=== PATIENT | male | born 1980 | race Caucasian/White ===

== ENCOUNTER 2017-06-10 22:58 | Emergency (ER) | payer BC ==
[~2017-06-10] VITALS: Ht 182.9 cm; Wt 92.7 kg
[2017-06-11] MEDS ORDERED: KEFLEX500 MG PO (00:14)
[2017-06-11] MEDS ORDERED: MOTRIN800 MG PO (00:15)
[2017-06-11 00:57] VITALS: BP 148/86
== END 2017-06-11 00:57 | disposition home or self-care (01) ==
LOC: EME 22:58
PROC: 3E0234Z Introduction of Serum, Toxoid and Vaccine into Muscle, Percutaneous Approach (ICD-10-PCS; principal; 2017-06-11)
DX: L55.1 Sunburn of second degree (principal); Z23 Encounter for immunization
CPT/HCPCS: 99281; 99284